=== PATIENT | female | born 1980 | race Caucasian/White ===

== ENCOUNTER 2017-04-21 21:14 | Emergency (ER) | payer BC, OTHER ==
[~2017-04-21] VITALS: Ht 165.1 cm; Wt 54.4 kg
--- NOTE | ~2017-04-21 | EKG ---
[address] [address] ELECTROCARDIOGRAM REPORT Name: STEVEN FAULKNER Room #: [facility]P [id number] Admission: 04/21/17 Attend Phys: Discharge: 04/21/17 Date of : 80 Report #: [id number] THIS REPORT FOR: //name// [facility] ED Test Date: 2017-04-21 Test Time: 21:34:19 Pat Name: STEVEN FAULKNER Department: Room: Gender: F Tie Sawyer: MZOOK : 1980 Requested By: Flora Coley Order Number: [id number] MD: Chaitanya Salas Measurements Intervals Morgan Rate: 102 P: 81 CT: 148 QRS: 34 QRSD: 99 T: 25 QT: 354 QTc: 462 Interpretive Statements Sinus tachycardia Otherwise no significant abnormality No previous ECG available for comparison Electronically Signed On 04-23-2017 15:23:47 MOLECULAR BIOLOGIST by Chaitanya Salas [email or web address] <ELECTRONICALLY SIGNED> By: Chaitanya Salas MD, [facility] 04/23/17 1523 2134 [id number] Chaitanya Salas MD, FACC /EPI
[2017-04-21 21:38] LABS: URINE BILIRUBIN NEGATIVE (Negative); URINE BLOOD NEGATIVE (Negative); URINE CLARITY CLEAR; URINE COLOR YELLOW; URINE GLUCOSE-RANDOM* NEGATIVE (Negative); URINE KETONES NEGATIVE (Negative); URINE LEUKOCYTES NEGATIVE (Negative); URINE NITRITE NEGATIVE (Negative); URINE PROTEIN (DIPSTICK) NEGATIVE (Negative); URINE UROBILINOGEN 0.2 E.U./dl (0.2-1.0)
[2017-04-21 21:53] LABS: ABSOLUTE NEUTROPHILS 3.8 thou/uL (1.4-8.2); BASOPHILS 0.5 % (0.0-2.0); EOSINOPHILS 1.3 % (0.0-3.0); HEMATOCRIT 36.6 % (37.0-47.0); HEMOGLOBIN 12.8 gm/dL (12.0-15.0); LYMPHOCYTES 45.4 % (24.0-44.0); MCH 32.5 pg (26.0-34.0); MCHC 34.8 g/dL (28.0-37.0); MCV 93.4 fL (80.0-100.0); MONOCYTES 8.7 % (1.0-8.0); PLATELET COUNT 218 thou/uL (150-400); POLYS 44.1 % (36.0-66.0); RBC 3.92 mil/uL (4.20-5.00); RDW 11.9 % (10.5-14.5); WBC 8.6 thou/uL (4.0-11.0)
[2017-04-21 22:01] LABS: ANION GAP 4 mmol/L (7-16); BUN 12 mg/dL (7-18); CALCIUM 8.7 mg/dL (8.5-10.1); CHLORIDE 105 mmol/L (98-107); CO2 31 mmol/L (21-32); CREATININE 0.8 mg/dL (0.6-1.0); GLUCOSE 133 mg/dL (74-106); SODIUM 140 mmol/L (136-145)
[2017-04-21 22:03] LABS: POTASSIUM 2.9 mmol/L (3.5-5.1)
[2017-04-21 22:10] LABS: LIPASE 102 U/L (73-393); SGOT 18 U/L (15-37); SGPT 21 U/L (30-65); TOTAL BILIRUBIN 0.3 mg/dL (<0.1-1.0); TOTAL PROTEIN 6.7 g/dL (6.4-8.2); TROPONIN-I < 0.04 ng/mL (<0.06)
[2017-04-21 22:48] LABS: AMP/METHAMP Negative (Negative); BARBITURATES Negative (Negative); BENZODIAZEPINES Negative (Negative); COCAINE Negative (Negative); METHADONE Negative (Negative); OPIATES Negative (Negative); PCP Negative (Negative)
[2017-04-21] MEDS ORDERED: POTASSIUM20 PO ×2 (23:09→23:37)
== END 2017-04-21 23:44 | disposition home or self-care (01) ==
LOC: ER 21:14
PROVIDERS: Nurse Practitioner Family
DX: E87.6 Hypokalemia (principal); E86.0 Dehydration; R94.6 Abnormal results of thyroid function studies; R00.2 Palpitations; R07.9 Chest pain, unspecified; Z87.891 Personal history of nicotine dependence